=== PATIENT | female | born 1950 | race Caucasian/White ===

== ENCOUNTER 2020-02-19 12:29 | Emergency (ER) | payer MEDICARE, OTHER | END 2020-02-19 13:45 | disposition home or self-care (01) | LOC: ERS 12:29 | DX: T63.061A Toxic effect of venom of other North and South American snake, accidental (unintentional), initial encounter (principal); E78.5 Hyperlipidemia, unspecified; I10 Essential (primary) hypertension; F17.210 Nicotine dependence, cigarettes, uncomplicated; Z79.899 Other long term (current) drug therapy ==

== ENCOUNTER 2020-02-20 11:03 | Inpatient (IN) | payer MEDICARE ==
[2020-02-20] MEDS ORDERED: Ondansetron PF 4 MG/2 ML Vial ONE (11:21)
[2020-02-20] MEDS ORDERED: Morphine 4 MG/ML VIAL ONE (11:21)
[2020-02-20] MEDS ORDERED: diphenhydrAMINE 50 MG/ML VIAL ONE (11:34)
[2020-02-20 11:37] LABS: #Basophils 0.1 thou/uL (0.0-0.2); #Eosinphils 0.1 thou/uL (0.0-0.7); #Lymphocytes 2.4 thou/uL (1.20-3.40); #Monocytes 0.4 thou/uL (0.11-0.59); #Neutrophils 3.8 thou/uL (1.40-6.50); %Eosinophils 2.1 % (0.0-10.0); %Lymphocytes 35.3 % (21.0-51.0); %Monocytes 6.4 % (0.0-10.0); %Neutrophils 55.2 % (42.0-75.0); Hemoglobin 17.1 g/dL (12.0-16.0); Mean Corpuscular HGB CONC 32.7 g/dL (32.0-36.0); Mean Corpuscular Hemoglobin 29.2 pg (27.0-31.0); Mean Corpuscular Volume 89.4 fL (78.0-98.0); Mean Platelet Volume 8.1 fL (7.4-10.4); Platelet Count 190 thou/uL (130-400); RBC Distribution Width 12.7 % (11.5-14.5); Red Blood Cell (RBC) Count 5.85 mill/uL (4.20-5.40); White Blood Cell (WBC) Count 6.8 thou/uL (4.8-10.8)
[2020-02-20] MEDS ORDERED: Crotalidae Polyvlnt Antivenin 4 GM in Sodium Chloride 0.9% 250 ML 250 ML IVPB SCH (11:45)
[2020-02-20 11:49] LABS: PTT 32.8 SEC (22.9-36.1); Prothrombin Time 12.8 SEC (12.0-14.7)
[2020-02-20 11:58] LABS: ALT (SGPT) 26 U/L (8-55); AST (SGOT) 16 U/L (5-34); Albumin 4.4 g/dL (3.4-4.8); Alkaline Phosphatase 102 U/L (40-110); Anion Gap 13 mmol/L (10-20); BUN (Urea Nitrogen) 12 mg/dL (9.8-20.1); Bilirubin, Total 0.7 mg/dL (0.2-1.2); CK (CPK) 79 U/L (29-168); Calc. Creatinine Clearance 0 mL/min (70-130); Carbon Dioxide 28 mmol/L (23-31); Chloride 102 mmol/L (98-107); Estimated GFR-MDRD 72; Globulin 2.9 g/dL (2.4-3.5); Glucose 117 mg/dL (80-115); Potassium 3.9 mmol/L (3.5-5.1); Protein, Total 7.3 g/dL (6.0-8.3); Sodium 139 mmol/L (136-145)
[2020-02-20 12:55] LABS: Bilirubin Negative (Negative); Blood, Urine Negative (Negative); Clarity Clear (Clear); Glucose, Urine (Dipstick) Normal (Negative); Leukocyte Negative Leu/uL (Negative); Nitrite Negative (Negative); Protein, Urine (Dipstick) Negative (Neg-Trace); Urobilinogen Normal mg/dL (Less than 2)
[2020-02-20] MEDS ORDERED: diphenhydrAMINE 50 MG/ML VIAL IVP PRN ×2 (14:43→14:45)
[2020-02-20] MEDS ORDERED: Ondansetron PF 4 MG/2 ML Vial IVP PRN (14:45)
[2020-02-20] MEDS ORDERED: HOLD ALL ANTI-COAGULANTS/ANTI-PLATELETS/NSAIDS PO SCH (14:45)
[2020-02-20 15:02] VITALS: BMI 30.4
[2020-02-20] MEDS ORDERED: Bisacodyl 5 MG TAB PO PRN (15:07)
[2020-02-20] MEDS ORDERED: Senokot S 8.6-50 MG TAB PO PRN (15:07)
[2020-02-20] MEDS ORDERED: Acetaminophen 325 MG TAB PO PRN (15:07)
--- NOTE | 2020-02-20 16:12 | HP ---
CHIEF COMPLAINT: Right lower extremity swelling from snake bite. HISTORY OF PRESENT ILLNESS: The patient is a very pleasant 69-year-old female, who presents to the hospital after a snake bite. The patient states that she was out in her garden working when she saw avis. She went to get something to kill it; however, she could not find it. Later on, she saw it again in the wreck of leaves and that is when it bit her only with one fang. She initially came into the ER; however, the site did not look significantly swollen. She had some pain and so she was sent home. However, she comes back in again today because she started having worsening swelling in an ascending manner around her knee. She denies any fevers or chills. Denies any nausea, vomiting, or diarrhea. She states that it is tender to touch around her calf area. PAST MEDICAL HISTORY: Hypertension and she has hyperlipidemia. PAST SURGICAL HISTORY: She has had a hysterectomy, , and knee arthroscopies. ALLERGIES: SHE HAS NO KNOWN DRUG ALLERGIES. MEDICATIONS: She is on; 1. Lisinopril 40 mg daily. 2. Atorvastatin 40 mg daily. 3. Norvasc 5 mg daily. FAMILY HISTORY: Mother and father had heart disease. Grandmother had stomach cancer. SOCIAL HISTORY: She smokes 1 pack every day. Social alcohol use. No drug use. She is a full code. REVIEW OF SYSTEMS: All negative except for the ones mentioned above in the HPI. PHYSICAL EXAMINATION: VITAL SIGNS: Temperature 98.2, pulse 80, respiratory rate 18, saturating 97% on room air, and blood pressure 117/65. GENERAL: She is awake, alert, and oriented x3. Does not appear in distress. CV: S1 and S2 present. No murmurs, rubs, or gallops. ABDOMEN: Soft and nontender. Bowel sounds are present x2. NEUROVASCULAR: No focal deficits noted. EXTREMITIES: She does have pedal pulses present bilaterally. On her right ankle, she has a significant swelling all the way to below her knee joint. Pain on palpation around her brandon area. I do see one small fang. She does have some discoloration around the bite area. LABORATORY RESULTS: Sodium of 139, potassium of 3.9, BUN of 12, and creatinine 0.80. LFTs are normal including the CK, which is 79. Hematology; white count of 6.8, hemoglobin of 17.1, hematocrit of 52.3, and platelets of 190. ASSESSMENT AND PLAN: The patient is a very pleasant 69-year-old female, who presents to the hospital with complaints after a copperhead bite. 1. Copperhead bite. She received crotalidae x1. We will watch her and continue to monitor her. I will tell the nurse to measure the girth of her right brandon area. Also take a picture to see if anything progresses. She has no leukocytosis. I will hold off on any sort of antibiotics since I do not think she requires any currently. 2. Hypertension. We will continue her home medications. 3. Hyperlipidemia. I will hold off on the statin just for now since she has the copperhead snake bite which can cause some muscle trauma, so hold off on the atorvastatin. It can also give you rhabdomyolysis. 4. Deep venous thrombosis prophylaxis. We will put the patient on subcu Lovenox. Job ID: [id number]
[2020-02-20] MEDS: Morphine 4 MG/ML VIAL SLOW IVP PRN (16:50)
[2020-02-20 21:31] LABS: #Eosinphils 0.2 thou/uL (0.0-0.7); #Lymphocytes 2.8 thou/uL (1.20-3.40); #Monocytes 0.4 thou/uL (0.11-0.59); #Neutrophils 2.2 thou/uL (1.40-6.50); %Basophils 0.3 % (0.0-1.0); %Eosinophils 4.2 % (0.0-10.0); %Lymphocytes 49.8 % (21.0-51.0); %Monocytes 6.6 % (0.0-10.0); %Neutrophils 39.2 % (42.0-75.0); Hemoglobin 14.6 g/dL (12.0-16.0); Mean Corpuscular HGB CONC 33.3 g/dL (32.0-36.0); Mean Corpuscular Hemoglobin 30.1 pg (27.0-31.0); Mean Corpuscular Volume 90.3 fL (78.0-98.0); Mean Platelet Volume 8.3 fL (7.4-10.4); Platelet Count 152 thou/uL (130-400); RBC Distribution Width 12.6 % (11.5-14.5); Red Blood Cell (RBC) Count 4.86 mill/uL (4.20-5.40); White Blood Cell (WBC) Count 5.6 thou/uL (4.8-10.8)
[2020-02-20 21:39] LABS: PTT 31.9 SEC (22.9-36.1); Prothrombin Time 13.4 SEC (12.0-14.7)
[2020-02-20] MEDS: Crotalidae Polyvlnt Antivenin 2 GM in Sodium Chloride 0.9% 250 ML 250 ML IVPB PRN (21:47)
[2020-02-20 21:51] LABS: ALT (SGPT) 18 U/L (8-55); AST (SGOT) 10 U/L (5-34); Albumin 3.4 g/dL (3.4-4.8); Alkaline Phosphatase 78 U/L (40-110); Anion Gap 10 mmol/L (10-20); BUN (Urea Nitrogen) 10 mg/dL (9.8-20.1); Bilirubin, Total 0.4 mg/dL (0.2-1.2); Calc. Creatinine Clearance 96 mL/min (70-130); Calcium 8.6 mg/dL (7.8-10.44); Carbon Dioxide 27 mmol/L (23-31); Chloride 108 mmol/L (98-107); Estimated GFR-MDRD 81; Globulin 2.2 g/dL (2.4-3.5); Glucose 122 mg/dL (80-115); Potassium 3.9 mmol/L (3.5-5.1); Protein, Total 5.6 g/dL (6.0-8.3); Sodium 141 mmol/L (136-145)
[2020-02-21] MEDS: Crotalidae Polyvlnt Antivenin 2 GM in Sodium Chloride 0.9% 250 ML 250 ML IVPB PRN ×2 (04:32→12:21)
[2020-02-21 04:48] LABS: #Eosinphils 0.3 thou/uL (0.0-0.7); #Lymphocytes 2.2 thou/uL (1.20-3.40); #Monocytes 0.3 thou/uL (0.11-0.59); #Neutrophils 2.5 thou/uL (1.40-6.50); %Basophils 0.9 % (0.0-1.0); %Eosinophils 5.1 % (0.0-10.0); %Lymphocytes 41.6 % (21.0-51.0); %Monocytes 5.4 % (0.0-10.0); %Neutrophils 47.1 % (42.0-75.0); Hemoglobin 14.5 g/dL (12.0-16.0); Mean Corpuscular HGB CONC 33.5 g/dL (32.0-36.0); Mean Corpuscular Volume 89.4 fL (78.0-98.0); Mean Platelet Volume 8.1 fL (7.4-10.4); Platelet Count 149 thou/uL (130-400); RBC Distribution Width 12.5 % (11.5-14.5); Red Blood Cell (RBC) Count 4.83 mill/uL (4.20-5.40); White Blood Cell (WBC) Count 5.2 thou/uL (4.8-10.8)
[2020-02-21 05:11] LABS: ALT (SGPT) 18 U/L (8-55); AST (SGOT) 10 U/L (5-34); Albumin 3.5 g/dL (3.4-4.8); Alkaline Phosphatase 77 U/L (40-110); Anion Gap 10 mmol/L (10-20); BUN (Urea Nitrogen) 9 mg/dL (9.8-20.1); Bilirubin, Total 0.6 mg/dL (0.2-1.2); CK (CPK) 60 U/L (29-168); Calc. Creatinine Clearance 99 mL/min (70-130); Calcium 8.8 mg/dL (7.8-10.44); Carbon Dioxide 29 mmol/L (23-31); Chloride 105 mmol/L (98-107); Estimated GFR-MDRD 83; Globulin 2.2 g/dL (2.4-3.5); Glucose 114 mg/dL (80-115); Potassium 3.9 mmol/L (3.5-5.1); Protein, Total 5.7 g/dL (6.0-8.3); Sodium 140 mmol/L (136-145)
[2020-02-21] MEDS ORDERED: Sodium Chloride 0.9% 500 ML IV SCH ×2 (07:45→08:30)
[2020-02-21] MEDS: Morphine 4 MG/ML VIAL SLOW IVP PRN ×2 (08:25→17:11)
[2020-02-21] MEDS ORDERED: Prevnar 13-Val Conj/PF 0.5 ML SYRINGE IM ONE (09:00)
[2020-02-21] MEDS ORDERED: Enoxaparin Sodium 40 MG/0.4 ML SYRINGE SC SCH (09:00)
[2020-02-21] MEDS ORDERED: Amlodipine 5 MG TAB PO SCH (09:00)
[2020-02-21] MEDS ORDERED: Lisinopril 20 MG TAB PO SCH (09:00)
[2020-02-21 14:45] LABS: #Basophils 0.1 thou/uL (0.0-0.2); #Eosinphils 0.3 thou/uL (0.0-0.7); #Lymphocytes 2.7 thou/uL (1.20-3.40); #Monocytes 0.4 thou/uL (0.11-0.59); #Neutrophils 2.7 thou/uL (1.40-6.50); %Eosinophils 4.3 % (0.0-10.0); %Lymphocytes 44.2 % (21.0-51.0); %Monocytes 6.2 % (0.0-10.0); %Neutrophils 44.3 % (42.0-75.0); Hemoglobin 14.5 g/dL (12.0-16.0); Mean Corpuscular HGB CONC 34.6 g/dL (32.0-36.0); Mean Corpuscular Hemoglobin 31.1 pg (27.0-31.0); Mean Corpuscular Volume 89.7 fL (78.0-98.0); Mean Platelet Volume 8.5 fL (7.4-10.4); Platelet Count 151 thou/uL (130-400); RBC Distribution Width 12.4 % (11.5-14.5); Red Blood Cell (RBC) Count 4.67 mill/uL (4.20-5.40)
[2020-02-21 14:50] LABS: PTT 30.3 SEC (22.9-36.1); Prothrombin Time 12.8 SEC (12.0-14.7)
--- NOTE | 2020-02-21 14:57 | EKG ---
Test Reason : Blood Pressure : / mmHG Vent. Rate : 088 BPM Atrial Rate : 088 BPM P-R Int : 166 ms QRS Dur : 056 ms QT Int : 366 ms P-R-T Axes : 058 -19 067 degrees QTc Int : 442 ms Poor data quality, interpretation may be adversely affected Normal sinus rhythm Low voltage QRS Septal infarct , age undetermined Abnormal ECG Confirmed by ABRAHAM CHATTERJEE, ANKIT ([id number]), newspaper editor managing SHARRI REDMOND ([id number]) on 02/21/2020 2:56:55 PM Referred By: Confirmed By:ANKIT ROSARIO MD
[2020-02-22 07:50] LABS: #Basophils 0.1 thou/uL (0.0-0.2); #Eosinphils 0.3 thou/uL (0.0-0.7); #Lymphocytes 2.5 thou/uL (1.20-3.40); #Monocytes 0.4 thou/uL (0.11-0.59); #Neutrophils 3.1 thou/uL (1.40-6.50); %Basophils 1.6 % (0.0-1.0); %Eosinophils 4.5 % (0.0-10.0); %Monocytes 5.8 % (0.0-10.0); %Neutrophils 49.1 % (42.0-75.0); Hemoglobin 15.5 g/dL (12.0-16.0); Mean Corpuscular HGB CONC 33.9 g/dL (32.0-36.0); Mean Corpuscular Hemoglobin 30.2 pg (27.0-31.0); Mean Corpuscular Volume 89.2 fL (78.0-98.0); Mean Platelet Volume 7.8 fL (7.4-10.4); Platelet Count 154 thou/uL (130-400); RBC Distribution Width 12.3 % (11.5-14.5); Red Blood Cell (RBC) Count 5.15 mill/uL (4.20-5.40); White Blood Cell (WBC) Count 6.3 thou/uL (4.8-10.8)
--- NOTE | 2020-02-22 07:57 | PDOC.HOSPP ---
- Subjective Encounter Date: 02/21/20 Encounter Time: 09:45 Subjective: pt up in bed feels well. - Objective Vital Signs & Weight: Vital Signs (12 hours) Temp Pulse Resp BP BP Pulse Ox 02/22/20 07:07 99.6 F 79 16 140/83 96 02/22/20 03:19 98 F 76 12 108/55 L 93 L Weight Weight 167 lb 4.8 oz I&O: 02/21/20 02/22/20 02/23/20 06:59 06:59 06:59 Intake Total 1105 2720 Balance 1105 2720 Result Diagrams: 02/22/20 07:40 02/21/20 04:32 Hospitalist ROS - Review of Systems Cardiovascular: denies: chest pain, palpitations, orthopnea, paroxysmal noc. dyspnea, edema, light headedness, other Gastrointestinal: denies: nausea, vomiting, abdominal pain, diarrhea, constipation, melena, hematochezia, other Genitourinary: denies: dysuria, frequency, incontinence, hematuria, retention, other - Medication Medications: Active Medications Generic Name Dose Route Start Last Admin Trade Name Freq PRN Reason Stop Dose Admin Crotalidae Polyvalent 250 mls @ 250 mls/hr 02/20/20 14:45 02/21/20 12:21 Antivenin 2 gm/ Sodium IVPB 02/22/20 14:46 250 mls Chloride ONE PRN Administration PROTOCOL SCORE FOLLOW UP DOSE Morphine Sulfate 4 mg 02/20/20 14:40 02/21/20 17:11 Morphine SLOW IVP 4 mg Q1H PRN Administration Pain Sodium Chloride 10 ml 02/21/20 09:00 02/21/20 21:35 Flush - Normal Saline IVF 10 ml Q12HR LAM Administration - Exam Respiratory: negative: CTAB, no wheezes, no rales, no ronchi, normal chest expansion, no tachypnea, normal percussion, rales, rhonchi, tachypneic, wheezes Gastrointestinal: soft, non-distended, normal bowel sounds Extremities: 1+ LE edema Extremities - other findings: right lower ext Hosp A/P (1) Right leg swelling Code(s): M79.89 - OTHER SPECIFIED SOFT TISSUE DISORDERS Status: Acute (2) Snake bite Code(s): W59.11XA - BITTEN BY NONVENOMOUS SNAKE, INITIAL ENCOUNTER Status: Acute (3) HTN (hypertension) Code(s): I10 - ESSENTIAL (PRIMARY) HYPERTENSION Status: Acute - Plan pt continues to receive crotalidae. will monitor labs. pt's right leg swelling is improving. will hold bp meds for now.
[2020-02-22] MEDS: Morphine 4 MG/ML VIAL SLOW IVP PRN (08:11)
[2020-02-22 08:18] LABS: ALT (SGPT) 20 U/L (8-55); AST (SGOT) 13 U/L (5-34); Albumin 3.8 g/dL (3.4-4.8); Alkaline Phosphatase 84 U/L (40-110); Anion Gap 15 mmol/L (10-20); BUN (Urea Nitrogen) 11 mg/dL (9.8-20.1); Bilirubin, Total 0.8 mg/dL (0.2-1.2); Calc. Creatinine Clearance 93 mL/min (70-130); Calcium 9.4 mg/dL (7.8-10.44); Carbon Dioxide 25 mmol/L (23-31); Chloride 102 mmol/L (98-107); Estimated GFR-MDRD 83; Globulin 2.6 g/dL (2.4-3.5); Glucose 121 mg/dL (80-115); Protein, Total 6.4 g/dL (6.0-8.3); Sodium 138 mmol/L (136-145)
[2020-02-22 11:16] VITALS: BP 134/69; TEMP 98.9
--- NOTE | 2020-02-22 23:07 | DIS ---
DATE OF ADMISSION: 02/20/2020 DATE OF DISCHARGE: 02/22/2020 DISCHARGE DIAGNOSES: 1. Snake bite to her right lower extremity. 2. Right lower extremity swelling. 3. Hypertension. HOSPITAL COURSE: The patient is a 69-year-old female who initially was bitten by a copperhead with one fang on her right ankle area. She initially came to the ER, was sent home, however, came back again with worsening swelling and pain. At this time, her labs continued to be normal including her CK. She was transfused crotalidae. Per protocol, she did really well. Her swelling improved. Pedal pulses were present and she felt well. She was discharged home. She will resume all her home medications, which are as of the followin. Atorvastatin 20 mg daily. 2. Amlodipine 2.5 daily. 3. Lisinopril 40 mg daily. PHYSICAL EXAMINATION: VITAL SIGNS: Temperature of 98.9, pulse 75, respirations 14, oxygen saturation 96% on room air, and blood pressure 134/69. GENERAL: She is awake, alert, and oriented x3. Does not appear in distress. CV: S1 and S2 present. No murmurs, rubs, or gallops. ABDOMEN: Soft and nontender. Bowel sounds are present x2. Again, she will be discharged home. She will follow up with her primary for any other issues. Job ID: [id number]
== END 2020-02-22 12:20 | disposition home or self-care (01) | DRG 918 ==
LOC: ERS 11:03 → 2NO 13:59
PROVIDERS: ADMIT Internal Medicine; ATTEND Internal Medicine
DX: T63.061A Toxic effect of venom of other North and South American snake, accidental (unintentional), initial encounter (principal); I10 Essential (primary) hypertension; E78.5 Hyperlipidemia, unspecified; F17.210 Nicotine dependence, cigarettes, uncomplicated; M79.89 Other specified soft tissue disorders; Y92.007 Garden or yard of unspecified non-institutional (private) residence as the place of occurrence of the external cause; Z90.710 Acquired absence of both cervix and uterus
CPT/HCPCS: 36415; 80053; 81003; 82550; 85025; 85384; 85610; 85730; 86850; 86900; 86901; 93005; 96361; 96365; 96375; 99283; J0840; J1200; J2270; J2405; J7050